=== PATIENT | female | born 1950 | race Caucasian/White ===

== ENCOUNTER 2016-12-12 10:12 | Inpatient (IN) | payer MEDICARE, MEDICAID ==
[~2016-12-12] VITALS: Ht 157.5 cm; Wt 60.3 kg
[~2016-12-12 10:12] MED LIST: ACET-1757 PO; DOCU100C8 PO; DULO60CA7 PO; METH500T7 PO; MULT-6 PO; OXYC5TAB3 PO; RANI-276 PO; [UNRECOGNIZED DRUG - OTHER] PO
[2016-12-12] MEDS ORDERED: ASPI-515 PO (10:35)
[2016-12-12] MEDS ORDERED: SODIUM CHLORIDE 0.9% 1,000 ML IV ONE (10:35)
[2016-12-12] MEDS ORDERED: PANTOPRAZOLE 80 MG in SODIUM CHLORIDE 0.9% 50 ML IVPB ONE (10:35)
[2016-12-12] MEDS ORDERED: PANTOPRAZOLE 80 MG in SODIUM CHLORIDE 0.9% 100 ML IV SCH ×2 (10:35→12:30)
[2016-12-12] MEDS ORDERED: PROCHLORPERAZINE 5 MG/ML, 2ML ONE (10:51)
[2016-12-12] MEDS ORDERED: PROCHLORPERAZINE 5 MG/ML, 2ML IM ONE (11:00)
[2016-12-12] MEDS ORDERED: SODIUM CHLORIDE FLUSH 10ML SYR IVF ONE (11:00)
[2016-12-12] MEDS ORDERED: ONDANSETRON 2MG/ML, 2ML IVPush ONE (11:00)
[2016-12-12] MEDS ORDERED: SODIUM CHLORIDE 0.9% 1,000ML IVBOLUS ONE ×2 (11:00→12:00)
[2016-12-12 11:22] LABS: BLOOD UREA NITROGEN 14 mg/dL (7-18)
[2016-12-12 11:24] LABS: ASPARTATE AMINO TRANSFERASE 28 U/L (15-37)
[2016-12-12] MEDS ORDERED: ONDANSETRON 2MG/ML, 2ML ONE (11:29)
[2016-12-12] MEDS ORDERED: LORazepam 2 MG/ML, 1ML ONE (12:19)
[2016-12-12] MEDS ORDERED: POTASSIUM CHLORIDE 20 MEQ, MAGNESIUM SULFATE 2 GM, THIAMINE 100 MG, MVI ADULT 10 ML, FO... IV SCH (12:21)
[2016-12-12] MEDS ORDERED: LORazepam 0.5MG TABLET PO PRN (12:30)
[2016-12-12] MEDS ORDERED: LORazepam 1MG TABLET PO PRN ×3 (12:30)
[2016-12-12] MEDS ORDERED: PROMETHAZINE 25 MG/ML, 1ML IM PRN (12:30)
[2016-12-12] MEDS ORDERED: LORazepam 2 MG/ML, 1ML IVPush ONE (12:30)
[2016-12-12] MEDS ORDERED: LABETALOL 5MG/ML, 20ML IVPush PRN (12:30)
[2016-12-12] MEDS ORDERED: LORazepam 2 MG/ML, 1ML IV PRN ×5 (12:30)
[2016-12-12 13:12] LABS: TOTAL IRON BINDING CAPACITY 401 mcg/dL (250-450)
[2016-12-12] MEDS ORDERED: POTASSIUM CHLORIDE 20 MEQ, MAGNESIUM SULFATE 2 GM, THIAMINE 100 MG, MVI ADULT 10 ML, FO... IV ONE (13:35)
[2016-12-12 14:45] VITALS: BP 150/80
[2016-12-12] MEDS: NS + 20MEQ KCL 1,000 ML IV SCH (17:04)
[2016-12-12] MEDS: CHLORDIAZEPOXIDE 25 MG CAPSULE PO SCH ×3 (17:05→21:00)
[2016-12-12] MEDS: ONDANSETRON 2MG/ML, 2ML IVPush PRN (18:30)
[2016-12-12 19:39] VITALS: BP 137/89
[2016-12-12] MEDS: PANTOPRAZOLE 80 MG in SODIUM CHLORIDE 0.9% 100 ML IV SCH (21:29)
[2016-12-13] MEDS: NS + 20MEQ KCL 1,000 ML IV SCH ×3 (00:37→23:16)
[2016-12-13] MEDS: LORazepam 1MG TABLET PO PRN ×2 (01:44→12:02)
[2016-12-13 02:00] VITALS: BP_SYST 146; BP_SYST 147; BP_DIAS 74; BP_DIAS 77
[2016-12-13 04:22] LABS: BLOOD UREA NITROGEN 6 mg/dL (7-18)
[2016-12-13 04:27] LABS: ASPARTATE AMINO TRANSFERASE 29 U/L (15-37)
[2016-12-13] MEDS: PANTOPRAZOLE 80 MG in SODIUM CHLORIDE 0.9% 100 ML IV SCH ×2 (05:55→17:30)
[2016-12-13 06:50] VITALS: BP 116/76
[2016-12-13] MEDS: CHLORDIAZEPOXIDE 25 MG CAPSULE PO SCH ×3 (08:29→21:36)
[2016-12-13] MEDS: MULTIVITAMINS/MINERALS TABLET PO SCH (08:29)
[2016-12-13] MEDS: ONDANSETRON 2MG/ML, 2ML IVPush PRN ×2 (09:29→20:23)
[2016-12-13] MEDS: POTASSIUM PHOSPHATE 44 MEQ in SODIUM CHLORIDE 0.9% 500 ML IV SCH ×2 (09:48→17:58)
[2016-12-13 12:50] VITALS: BP 154/86
[2016-12-13 19:54] VITALS: BP 122/85
[2016-12-14 00:51] VITALS: BP 131/86
[2016-12-14] MEDS: POTASSIUM PHOSPHATE 44 MEQ in SODIUM CHLORIDE 0.9% 500 ML IV SCH (01:26)
[2016-12-14] MEDS: PANTOPRAZOLE 80 MG in SODIUM CHLORIDE 0.9% 100 ML IV SCH (04:28)
[2016-12-14 05:29] LABS: BLOOD UREA NITROGEN 2 mg/dL (7-18)
[2016-12-14] MEDS: NS + 20MEQ KCL 1,000 ML IV SCH ×2 (05:35→17:34)
[2016-12-14] MEDS: ONDANSETRON 2MG/ML, 2ML IVPush PRN ×2 (05:38→10:38)
[2016-12-14 05:52] LABS: DIFF TOTAL CELLS COUNTED 100 CELL DIFF
[2016-12-14 06:13] LABS: VERIFY COUNTS? YES
[2016-12-14 07:52] VITALS: BP 118/81
[2016-12-14] MEDS: OMEPRAZOLE 20 MG CAPSULE.DR PO SCH ×2 (10:35→21:47)
[2016-12-14] MEDS: MULTIVITAMINS/MINERALS TABLET PO SCH (10:35)
[2016-12-14] MEDS: CHLORDIAZEPOXIDE 25 MG CAPSULE PO SCH ×3 (10:38→21:47)
[2016-12-14 13:57] VITALS: BP 109/74
[2016-12-14 19:24] VITALS: BP 126/91
[2016-12-15 01:10] VITALS: BP 125/87
[2016-12-15] MEDS: NS + 20MEQ KCL 1,000 ML IV SCH (06:31)
[2016-12-15 08:00] VITALS: BP 113/76
[2016-12-15] MEDS: OMEPRAZOLE 20 MG CAPSULE.DR PO SCH (08:41)
[2016-12-15] MEDS: CHLORDIAZEPOXIDE 25 MG CAPSULE PO SCH (08:41)
[2016-12-15] MEDS: MULTIVITAMINS/MINERALS TABLET PO SCH (08:41)
[2016-12-15] MEDS ORDERED: MULT-484 PO (10:53)
[2016-12-15] MEDS ORDERED: OMEP-110 PO (10:53)
[2016-12-15] MEDS ORDERED: THIA100T10 PO (10:53)
[2016-12-15 14:54] VITALS: BP 112/70
== END 2016-12-15 15:17 | disposition home or self-care (01) | DRG 895 ==
LOC: ED 10:50 → EDIP 12:32 → 4WST 14:30 → UNDODISIN 12-15 15:07 → DCLOUNGE 12-15 15:07
PROVIDERS: ADMIT Hospitalist; ATTEND Hospitalist
PROC: HZ34ZZZ Individual Counseling for Substance Abuse Treatment, Interpersonal (ICD-10-PCS; principal; 2016-12-12)
PROC: HZ2ZZZZ Detoxification Services for Substance Abuse Treatment (ICD-10-PCS; 2016-12-12)
DX: F10.239 Alcohol dependence with withdrawal, unspecified (principal); E87.2 Acidosis; E87.1 Hypo-osmolality and hyponatremia; K92.0 Hematemesis; F32.9 Major depressive disorder, single episode, unspecified; E86.0 Dehydration; D72.829 Elevated white blood cell count, unspecified; D53.9 Nutritional anemia, unspecified; Z96.642 Presence of left artificial hip joint; Z79.82 Long term (current) use of aspirin
CPT/HCPCS: 36415; 74022; 80048; 80053; 82607; 82728; 82746; 83540; 83550; 83605; 83690; 83735; 84100; 84439; 84443; 85025; 85045; 85610; 85730; 93005; 96365; 96372; 96375; J2405; J3411; J3475; J3480; J7042; C9113; J0780; J2060; J7030; J7040

== ENCOUNTER 2017-06-22 16:57 | Emergency (ER) | payer MEDICARE, MEDICAID ==
[~2017-06-22] VITALS: Ht 157.5 cm; Wt 54.7 kg
[~2017-06-22 16:57] MED LIST changes: +ASPI-515 PO; +DOCU100C33 PO; -DOCU100C8 PO; +MULT-484 PO; +OMEP-110 PO; +THIA100T10 PO
[2017-06-22] MEDS ORDERED: ONDANSETRON 2MG/ML, 2ML ONE (17:49)
[2017-06-22] MEDS ORDERED: GLUCAGON 1 MG ONE (17:49)
[2017-06-22] MEDS ORDERED: ONDANSETRON 2MG/ML, 2ML IVPush ONE (18:00)
[2017-06-22] MEDS ORDERED: GLUCAGON 1 MG IVPush ONE (18:00)
[2017-06-22] MEDS ORDERED: SODIUM CHLORIDE FLUSH 10ML SYR IVF ONE (18:00)
[2017-06-22] MEDS ORDERED: MIDAZOLAM 1 MG/ML, 5ML ONE (18:52)
[2017-06-22] MEDS ORDERED: FENTANYL PF 100 MCG/2ML ONE (18:52)
[2017-06-22] MEDS ORDERED: DIPHENHYDRAMINE 50 MG/ML, 1ML ONE (19:15)
[2017-06-22] MEDS ORDERED: DIPHENHYDRAMINE 50 MG/ML, 1ML IV ONE ×2 (20:00)
[2017-06-22] MEDS ORDERED: FENTANYL PF 100 MCG/2ML IVPush PRN (20:00)
[2017-06-22] MEDS ORDERED: MIDAZOLAM 1 MG/ML, 5ML IVPush PRN (20:00)
[2017-06-22 21:26] VITALS: BP 110/76
== END 2017-06-22 21:30 | disposition home or self-care (01) ==
LOC: ED 19:35
DX: T18.128A Food in esophagus causing other injury, initial encounter (principal); F41.9 Anxiety disorder, unspecified; F32.9 Major depressive disorder, single episode, unspecified; X58.XXXA Exposure to other specified factors, initial encounter; Y93.89 Activity, other specified; Y92.89 Other specified places as the place of occurrence of the external cause; Y99.8 Other external cause status
CPT/HCPCS: 43247; 88305; 93005; 96374; 96375; 99152; 99285; J1200; J1610; J2250; J2405; J3010

== ENCOUNTER 2018-05-20 18:36 | Emergency (ER) | payer MEDICARE, MEDICAID ==
[~2018-05-20] VITALS: Ht 160 cm; Wt 52.2 kg
[2018-05-20] MEDS ORDERED: SODIUM CHLORIDE 0.9% 1,000 ML IV ONE (18:57)
[2018-05-20] MEDS ORDERED: SODIUM CHLORIDE FLUSH 10ML SYR IVF ONE (19:00)
[2018-05-20 19:19] LABS: BASOPHILS # (AUTO) 0.02 x10^3/uL (0-0.1); BASOPHILS % (AUTO) 0 % (0-1); EOSINOPHILS # (AUTO) 0.05 x10^3/uL (0-0.4); EOSINOPHILS % (AUTO) 1 % (1-7); LYMPHOCYTES # (AUTO) 1.12 x10^3/uL (1-3.4); LYMPHOCYTES % (AUTO) 25 % (22-44); MD NO; MEAN CORPUSCULAR HEMOGLOBIN 34.6 pg (27.0-34.8); MEAN CORPUSCULAR HGB CONC 33.7 g/dL (32.4-35.8); MEAN CORPUSCULAR VOLUME 102.7 fL (80-100); MEAN PLATELET VOLUME 7.2 fL (7.4-10.4); MONOCYTES # (AUTO) 0.71 x10^3/uL (0.2-0.8); MONOCYTES % (AUTO) 16 % (2-9); NEUTROPHILS # (AUTO) 2.54 x10^3/uL (1.8-6.8); NEUTROPHILS % (AUTO) 57 % (42-75); PLATELET COUNT 259 x10^3/uL (130-400); RED BLOOD COUNT 3.45 x10^6/uL (3.82-5.3); RED CELL DISTRIBUTION WIDTH 16.6 % (9.6-15.2)
[2018-05-20 19:30] LABS: ALANINE AMINOTRANSFERASE 305 U/L (12-78); ALBUMIN 3.7 g/dL (3.4-5.0); ANION GAP 9 mmol/L (5-15); CALCIUM 9.1 mg/dL (8.5-10.1); CHLORIDE 110 mmol/L (98-107); CREATININE 0.44 mg/dL (0.55-1.02)
[2018-05-20 19:32] LABS: ALKALINE PHOSPHATASE 66 U/L (45-117); BILIRUBIN,TOTAL 0.6 mg/dL (0.2-1.0); TOTAL PROTEIN 7.9 g/dL (6.4-8.2)
[2018-05-20] MEDS ORDERED: OMNIPAQUE 350 MG/ML, 100ML BOTTLE ONE (20:01)
[2018-05-20 20:27] LABS: MICROSCOPIC AUTO
[2018-05-20] MEDS ORDERED: PINK LADY ENEMA 490 ML BOTTLE PR ONE (20:30)
[2018-05-20 20:33] LABS: CULTURE INDICATED? YES
[2018-05-20] MEDS ORDERED: ALBUTEROL 0.5%, 20ML ONE (21:08)
[2018-05-20 23:02] VITALS: BP 142/100
== END 2018-05-20 23:04 | disposition home or self-care (01) ==
LOC: ED 19:33
DX: K59.00 Constipation, unspecified (principal); F32.9 Major depressive disorder, single episode, unspecified
CPT/HCPCS: 36415; 74177; 80053; 81001; 83605; 83690; 85025; 87077; 87086; 87186; 99285; J7030; Q9967

== ENCOUNTER 2018-05-30 15:25 | Emergency (ER) | payer MEDICARE, MEDICAID ==
[~2018-05-30] VITALS: Ht 157.5 cm; Wt 51.0 kg
[2018-05-30 16:35] LABS: BASOPHILS # (AUTO) 0.07 x10^3/uL (0-0.1); BASOPHILS % (AUTO) 1 % (0-1); EOSINOPHILS # (AUTO) 0.02 x10^3/uL (0-0.4); EOSINOPHILS % (AUTO) 0 % (1-7); LYMPHOCYTES # (AUTO) 3.22 x10^3/uL (1-3.4); LYMPHOCYTES % (AUTO) 42 % (22-44); MD NO; MEAN CORPUSCULAR HEMOGLOBIN 34.4 pg (27.0-34.8); MEAN CORPUSCULAR HGB CONC 33.7 g/dL (32.4-35.8); MEAN CORPUSCULAR VOLUME 102.1 fL (80-100); MONOCYTES # (AUTO) 0.52 x10^3/uL (0.2-0.8); MONOCYTES % (AUTO) 7 % (2-9); NEUTROPHILS # (AUTO) 3.87 x10^3/uL (1.8-6.8); NEUTROPHILS % (AUTO) 50 % (42-75); PLATELET COUNT 501 x10^3/uL (130-400); RED BLOOD COUNT 3.31 x10^6/uL (3.82-5.3); RED CELL DISTRIBUTION WIDTH 16.4 % (9.6-15.2)
[2018-05-30 16:46] LABS: ALBUMIN 3.4 g/dL (3.4-5.0); ANION GAP 10 mmol/L (5-15); CALCIUM 8.1 mg/dL (8.5-10.1); CHLORIDE 111 mmol/L (98-107)
[2018-05-30 16:47] LABS: CREATININE 0.46 mg/dL (0.55-1.02)
[2018-05-30 16:48] LABS: ACETAMINOPHEN < 2 mcg/mL (10-30); SALICYLATE LEVEL < 1.7 mg/dL (2.8-20.0)
[2018-05-30] MEDS ORDERED: ZIPRASIDONE 20 MG INJ IM ONE (17:00)
[2018-05-31 00:17] VITALS: BP 106/54
== END 2018-05-31 00:22 | disposition home or self-care (01) ==
LOC: ED 17:18
DX: F32.9 Major depressive disorder, single episode, unspecified (principal); R45.851 Suicidal ideations; F10.220 Alcohol dependence with intoxication, uncomplicated
CPT/HCPCS: 36415; 80048; 80307; 80329; 82040; 85025; 99284; J3486; G0480

== ENCOUNTER 2018-09-14 12:25 | Inpatient (IN) | payer MEDICARE, MEDICAID ==
[~2018-09-14] VITALS: Ht 157.5 cm; Wt 52.8 kg
[~2018-09-14 12:25] MED LIST changes: +MELO15TA24 PO; +MIRT15TA4 PO; +POTASSIUM; -RANI-276 PO; +RANI-448 PO; +TRAZ-96 PO
[2018-09-14] MEDS ORDERED: SODIUM CHLORIDE FLUSH 10ML SYR IVF ONE (13:30)
[2018-09-14] MEDS ORDERED: MORPHINE SULFATE 4 MG/ML, 1ML IVPush PRN (13:30)
--- NOTE | 2018-09-14 13:32 | NUR ---
REQUESTED RECORDS FROM [facility].
[2018-09-14] MEDS ORDERED: ONDANSETRON 2MG/ML, 2ML ONE (14:03)
[2018-09-14] MEDS ORDERED: MORPHINE SULFATE 4 MG/ML, 1ML ONE (14:03)
[2018-09-14 14:06] LABS: HCT (SEDRATE) 31.9 % (34.6-47.8)
--- NOTE | 2018-09-14 14:20 | NUR ---
STRAIGHT CATH PER PROTOCOL. URINE WALKED TO LAB.
[2018-09-14 14:21] LABS: ALBUMIN 3.2 g/dL (3.4-5.0); ANION GAP 10 mmol/L (5-15); CALCIUM 8.4 mg/dL (8.5-10.1); CHLORIDE 99 mmol/L (98-107)
[2018-09-14 14:24] LABS: ALANINE AMINOTRANSFERASE 75 U/L (12-78); ALKALINE PHOSPHATASE 69 U/L (45-117); BILIRUBIN,TOTAL 1.2 mg/dL (0.2-1.0); CREATININE 0.33 mg/dL (0.55-1.02)
[2018-09-14] MEDS ORDERED: ONDANSETRON 2MG/ML, 2ML IVPush ONE (14:30)
[2018-09-14 14:37] LABS: CULTURE INDICATED? YES; MICROSCOPIC INDICATED
[2018-09-14] MEDS ORDERED: MAGNESIUM SULFATE PMX 2GM/50ML 50 ML ONE (15:09)
[2018-09-14] MEDS ORDERED: POTASSIUM CHLORIDE 20 MEQ TAB.ER.PRT ONE (15:09)
[2018-09-14 15:25] LABS: BASOPHILS # (AUTO) 0.02 x10^3/uL (0-0.1); BASOPHILS % (AUTO) 0 % (0-1); EOSINOPHILS # (AUTO) 0.01 x10^3/uL (0-0.4); EOSINOPHILS % (AUTO) 0 % (1-7); LYMPHOCYTES # (AUTO) 0.21 x10^3/uL (1-3.4); LYMPHOCYTES % (AUTO) 4 % (22-44); MD SCAN; MEAN CORPUSCULAR HEMOGLOBIN 32.5 pg (27.0-34.8); MEAN CORPUSCULAR HGB CONC 32.9 g/dL (32.4-35.8); MEAN CORPUSCULAR VOLUME 98.7 fL (80-100); MONOCYTES # (AUTO) 0.21 x10^3/uL (0.2-0.8); MONOCYTES % (AUTO) 4 % (2-9); NEUTROPHILS # (AUTO) 4.47 x10^3/uL (1.8-6.8); NEUTROPHILS % (AUTO) 91 % (42-75); PLATELET COUNT 94 x10^3/uL (130-400); RED BLOOD COUNT 3.23 x10^6/uL (3.82-5.3); RED CELL DISTRIBUTION WIDTH 17.3 % (9.6-15.2)
[2018-09-14] MEDS ORDERED: POTASSIUM CHLORIDE 20 MEQ TAB.ER.PRT PO ONE (15:30)
[2018-09-14] MEDS ORDERED: POTASSIUM CHLORIDE 40 MEQ in D5%-0.9% NACL 1,000 ML IV SCH (15:30)
[2018-09-14] MEDS ORDERED: MAGNESIUM SULFATE PMX 2GM/50ML 50 ML IV ONE (15:30)
[2018-09-14] MEDS ORDERED: BISACODYL 10 MG SUPP PR PRN (17:00)
[2018-09-14] MEDS ORDERED: ENALAPRILAT 1.25 MG/ML, 2ML IVPush PRN (17:00)
[2018-09-14] MEDS ORDERED: LABETALOL 5MG/ML, 20ML IVPush PRN (17:00)
[2018-09-14] MEDS ORDERED: GABAPENTIN 300 MG CAPSULE PO PRN (17:00)
[2018-09-14] MEDS ORDERED: ACETAMINOPHEN 325 MG TABLET PO PRN (17:00)
[2018-09-14] MEDS ORDERED: POLYETHYLENE GLYCOL 17 GM PACKET PO PRN (17:00)
[2018-09-14] MEDS ORDERED: LACTULOSE 10 GM/15 ML UDC PO PRN (17:00)
--- NOTE | 2018-09-14 18:40 | NUR ---
SLEEPING COMFORTABLY. WAITING ON ADMIT BED.
--- NOTE | 2018-09-14 19:30 | NUR ---
ASSUME CARE OF PT
[2018-09-14 20:24] VITALS: BP 109/77
[2018-09-14] MEDS: HYDROcodone/APAP 5/325 TABLET PO PRN (21:43)
[2018-09-14] MEDS: HEPARIN 5,000 UNITS/ML, 1ML SQ SCH (21:43)
[2018-09-14] MEDS: D5%-0.45NACL+KCL 20MEQ 1,000 ML IV SCH (21:54)
[2018-09-14 23:02] LABS: ANION GAP 8 mmol/L (5-15); CALCIUM 7.8 mg/dL (8.5-10.1); CHLORIDE 101 mmol/L (98-107)
[2018-09-14 23:03] LABS: CREATININE 0.46 mg/dL (0.55-1.02)
[2018-09-15 01:46] VITALS: BP 103/72
[2018-09-15] MEDS: HYDROcodone/APAP 5/325 TABLET PO PRN ×4 (04:01→23:58)
[2018-09-15] MEDS: HEPARIN 5,000 UNITS/ML, 1ML SQ SCH ×3 (05:34→20:25)
[2018-09-15 05:49] LABS: MEAN CORPUSCULAR VOLUME 99.9 fL (80-100); RED BLOOD COUNT 3.02 x10^6/uL (3.82-5.3)
[2018-09-15 06:02] LABS: ALANINE AMINOTRANSFERASE 63 U/L (12-78); ALBUMIN 2.6 g/dL (3.4-5.0); ANION GAP 8 mmol/L (5-15); CALCIUM 7.7 mg/dL (8.5-10.1); CHLORIDE 104 mmol/L (98-107)
[2018-09-15 06:05] LABS: ALKALINE PHOSPHATASE 62 U/L (45-117); BILIRUBIN,TOTAL 0.7 mg/dL (0.2-1.0); CREATININE 0.47 mg/dL (0.55-1.02); TOTAL PROTEIN 5.9 g/dL (6.4-8.2)
[2018-09-15 07:29] LABS: BASOPHILS # (AUTO) 0.01 x10^3/uL (0-0.1); BASOPHILS % (AUTO) 0 % (0-1); EOSINOPHILS # (AUTO) 0.08 x10^3/uL (0-0.4); EOSINOPHILS % (AUTO) 3 % (1-7); LYMPHOCYTES # (AUTO) 0.61 x10^3/uL (1-3.4); LYMPHOCYTES % (AUTO) 19 % (22-44); MD SCAN; MEAN PLATELET VOLUME 7.6 fL (7.4-10.4); MONOCYTES # (AUTO) 0.37 x10^3/uL (0.2-0.8); MONOCYTES % (AUTO) 12 % (2-9); NEUTROPHILS # (AUTO) 2.13 x10^3/uL (1.8-6.8); NEUTROPHILS % (AUTO) 67 % (42-75); PLATELET COUNT 87 x10^3/uL (130-400)
[2018-09-15 07:35] VITALS: BP 103/72
[2018-09-15] MEDS: D5%-0.45NACL+KCL 20MEQ 1,000 ML IV SCH ×2 (08:25→18:25)
[2018-09-15] MEDS: SENNA/DOCUSATE TABLET PO SCH (08:25)
[2018-09-15] MEDS: MULTIVITAMIN 1 TABLET PO SCH (08:25)
[2018-09-15] MEDS: THIAMINE 100MG TABLET PO SCH (08:25)
[2018-09-15] MEDS: CALCITONIN NASAL 200 UNITS/0.09ML, 3.7ML NAS SCH (08:38)
[2018-09-15 12:17] VITALS: BP 122/87
[2018-09-15 19:10] VITALS: BP 131/77
[2018-09-16 01:13] VITALS: BP 128/72
[2018-09-16] MEDS: D5%-0.45NACL+KCL 20MEQ 1,000 ML IV SCH ×3 (04:12→21:10)
[2018-09-16] MEDS: HEPARIN 5,000 UNITS/ML, 1ML SQ SCH ×3 (05:13→21:10)
[2018-09-16 05:18] LABS: CLOSTRIDIUM DIFFICILE ANTIGEN POSITIVE; CLOSTRIDIUM DIFFICILE TOXIN NEGATIVE (Negative)
[2018-09-16 08:01] VITALS: BP 132/78
[2018-09-16] MEDS: SENNA/DOCUSATE TABLET PO SCH (09:00)
[2018-09-16] MEDS: MULTIVITAMIN 1 TABLET PO SCH (10:06)
[2018-09-16] MEDS: HYDROcodone/APAP 5/325 TABLET PO PRN ×2 (10:06→21:10)
[2018-09-16] MEDS: THIAMINE 100MG TABLET PO SCH (10:06)
[2018-09-16] MEDS: CALCITONIN NASAL 200 UNITS/0.09ML, 3.7ML NAS SCH (11:38)
[2018-09-16 13:16] VITALS: BP 115/80
[2018-09-16 18:35] VITALS: BP 123/84
[2018-09-17 01:45] VITALS: BP 146/94
[2018-09-17] MEDS: HEPARIN 5,000 UNITS/ML, 1ML SQ SCH ×3 (05:26→22:05)
[2018-09-17 06:47] LABS: ANION GAP 7 mmol/L (5-15); CALCIUM 8.1 mg/dL (8.5-10.1); CHLORIDE 105 mmol/L (98-107); CREATININE 0.33 mg/dL (0.55-1.02)
[2018-09-17] MEDS ORDERED: POTASSIUM CHLORIDE 20 MEQ TAB.ER.PRT PO ONE (07:30)
[2018-09-17] MEDS: SENNA/DOCUSATE TABLET PO SCH (07:56)
[2018-09-17 08:40] VITALS: BP 129/86
[2018-09-17] MEDS: CALCITONIN NASAL 200 UNITS/0.09ML, 3.7ML NAS SCH (08:53)
[2018-09-17] MEDS: THIAMINE 100MG TABLET PO SCH (08:54)
[2018-09-17] MEDS: MULTIVITAMIN 1 TABLET PO SCH (08:54)
[2018-09-17] MEDS: D5%-0.45NACL+KCL 20MEQ 1,000 ML IV SCH (09:52)
[2018-09-17] MEDS: CHOLECALCIFEROL 400 UNITS TABLET PO SCH ×2 (11:16→20:13)
[2018-09-17] MEDS: CALCIUM CARBONATE 500 MG TABLET PO SCH ×2 (11:16→20:13)
[2018-09-17] MEDS ORDERED: ONDANSETRON ODT 4 MG PO PRN (13:00)
[2018-09-17 13:17] VITALS: BP 136/79
[2018-09-17] MEDS ORDERED: ALENDRONATE 70 MG TABLET PO SCH (13:30)
[2018-09-17 19:00] VITALS: BP 133/89
[2018-09-17] MEDS: HYDROcodone/APAP 5/325 TABLET PO PRN (20:13)
[2018-09-18 01:00] VITALS: BP 138/89
[2018-09-18] MEDS: HYDROcodone/APAP 5/325 TABLET PO PRN ×2 (01:11→10:11)
[2018-09-18] MEDS: HEPARIN 5,000 UNITS/ML, 1ML SQ SCH ×3 (05:47→20:50)
[2018-09-18 06:30] VITALS: BP 114/78
[2018-09-18] MEDS: SENNA/DOCUSATE TABLET PO SCH (07:32)
[2018-09-18] MEDS: CHOLECALCIFEROL 400 UNITS TABLET PO SCH ×2 (10:05→20:50)
[2018-09-18] MEDS: THIAMINE 100MG TABLET PO SCH (10:05)
[2018-09-18] MEDS: CALCIUM CARBONATE 500 MG TABLET PO SCH ×2 (10:05→20:50)
[2018-09-18] MEDS: MULTIVITAMIN 1 TABLET PO SCH (10:05)
[2018-09-18] MEDS: CALCITONIN NASAL 200 UNITS/0.09ML, 3.7ML NAS SCH (10:11)
[2018-09-18 14:58] VITALS: BP 120/78
[2018-09-18 18:40] VITALS: BP 123/83
[2018-09-18] MEDS: BACLOFEN 10 MG TABLET PO PRN (20:57)
[2018-09-19 03:15] VITALS: BP 158/85
[2018-09-19] MEDS: HEPARIN 5,000 UNITS/ML, 1ML SQ SCH ×3 (05:44→21:13)
[2018-09-19 07:28] VITALS: BP 122/80
[2018-09-19] MEDS: SENNA/DOCUSATE TABLET PO SCH (09:00)
[2018-09-19] MEDS: CHOLECALCIFEROL 400 UNITS TABLET PO SCH ×2 (09:18→21:13)
[2018-09-19] MEDS: CALCITONIN NASAL 200 UNITS/0.09ML, 3.7ML NAS SCH (09:18)
[2018-09-19] MEDS: THIAMINE 100MG TABLET PO SCH (09:18)
[2018-09-19] MEDS: MULTIVITAMIN 1 TABLET PO SCH (09:18)
[2018-09-19] MEDS: CALCIUM CARBONATE 500 MG TABLET PO SCH ×2 (09:18→21:13)
[2018-09-19] MEDS: HYDROcodone/APAP 5/325 TABLET PO PRN ×2 (11:36→23:28)
[2018-09-19 13:34] VITALS: BP 107/71
[2018-09-19 19:11] VITALS: BP 133/85
[2018-09-19] MEDS: BACLOFEN 10 MG TABLET PO PRN (22:38)
[2018-09-20 01:03] VITALS: BP 145/85
[2018-09-20] MEDS: HYDROcodone/APAP 5/325 TABLET PO PRN (03:31)
[2018-09-20] MEDS: HEPARIN 5,000 UNITS/ML, 1ML SQ SCH ×2 (06:27→14:30)
[2018-09-20 07:24] VITALS: BP 121/78
[2018-09-20] MEDS: CALCIUM CARBONATE 500 MG TABLET PO SCH (08:37)
[2018-09-20] MEDS: CHOLECALCIFEROL 400 UNITS TABLET PO SCH (08:37)
[2018-09-20] MEDS: MULTIVITAMIN 1 TABLET PO SCH (08:37)
[2018-09-20] MEDS: SENNA/DOCUSATE TABLET PO SCH (08:37)
[2018-09-20] MEDS: THIAMINE 100MG TABLET PO SCH (08:37)
[2018-09-20] MEDS: CALCITONIN NASAL 200 UNITS/0.09ML, 3.7ML NAS SCH (08:37)
[2018-09-20] MEDS: BACLOFEN 10 MG TABLET PO PRN (08:37)
[2018-09-20] MEDS ORDERED: ALEN70TA6 PO (09:43)
[2018-09-20] MEDS ORDERED: CALC-666 PO (09:43)
[2018-09-20] MEDS ORDERED: CHOL400T2 PO (09:43)
[2018-09-20 12:25] VITALS: BP 125/79
[2018-09-20] MEDS ORDERED: TRAZ-96 PO (13:32)
[2018-09-20] MEDS ORDERED: HYDR-3240 PO (13:32)
[2018-09-24] MEDS ORDERED: ALENDRONATE 70 MG TABLET PO SCH (06:30)
== END 2018-09-20 15:23 | DRG 542 ==
LOC: ED 14:09 → EDIP 15:21 → UNDOADMIN 15:45 → 4EST 20:09
PROVIDERS: ADMIT Family Medicine; ATTEND Family Medicine
PROC: 0T9B70Z Drainage of Bladder with Drainage Device, Via Natural or Artificial Opening (ICD-10-PCS; principal; 2018-09-14)
DX: M80.00XA Age-related osteoporosis with current pathological fracture, unspecified site, initial encounter for fracture (principal); E43 Unspecified severe protein-calorie malnutrition; E87.1 Hypo-osmolality and hyponatremia; Z80.3 Family history of malignant neoplasm of breast; Z80.1 Family history of malignant neoplasm of trachea, bronchus and lung; I11.0 Hypertensive heart disease with heart failure; G89.29 Other chronic pain; F41.1 Generalized anxiety disorder; E83.51 Hypocalcemia; E83.42 Hypomagnesemia; E86.0 Dehydration; E87.6 Hypokalemia; F10.21 Alcohol dependence, in remission; Z59.0 Homelessness; Z87.19 Personal history of other diseases of the digestive system; Z96.642 Presence of left artificial hip joint
CPT/HCPCS: 36415; 71045; 72128; 72131; 80048; 80053; 80307; 81001; 83605; 83735; 84100; 84443; 85025; 85651; 87040; 87086; 87324; 93005; 96374; 96375; 99285; G0378; J1644; J2405; J3480; J7042; Q0162; J3475

== ENCOUNTER 2018-11-07 17:02 | Inpatient (IN) | payer MEDICARE, MEDICAID ==
[~2018-11-07] VITALS: Ht 157.5 cm; Wt 40.6 kg
[~2018-11-07 17:02] MED LIST changes: +ALEN70TA6 PO; +CALC-666 PO; +CHOL400T2 PO; +HYDR-3240 PO
--- NOTE | 2018-11-07 17:24 | NUR ---
[facility]
--- NOTE | 2018-11-07 17:27 | NUR ---
Pt in triage room 2 getting EKG
[2018-11-07 17:29] LABS: BASOPHILS # (AUTO) 0.03 x10^3/uL (0-0.1); BASOPHILS % (AUTO) 0 % (0-1); EOSINOPHILS % (AUTO) 0 % (1-7); LYMPHOCYTES # (AUTO) 1.21 x10^3/uL (1-3.4); LYMPHOCYTES % (AUTO) 15 % (22-44); MD NO; MEAN CORPUSCULAR HEMOGLOBIN 32.5 pg (27.0-34.8); MEAN CORPUSCULAR HGB CONC 32.2 g/dL (32.4-35.8); MEAN CORPUSCULAR VOLUME 100.8 fL (80-100); MEAN PLATELET VOLUME 7.6 fL (7.4-10.4); MONOCYTES # (AUTO) 0.41 x10^3/uL (0.2-0.8); MONOCYTES % (AUTO) 5 % (2-9); NEUTROPHILS # (AUTO) 6.55 x10^3/uL (1.8-6.8); NEUTROPHILS % (AUTO) 80 % (42-75); PLATELET COUNT 238 x10^3/uL (130-400); RED BLOOD COUNT 4.38 x10^6/uL (3.82-5.3); RED CELL DISTRIBUTION WIDTH 16.2 % (9.6-15.2)
[2018-11-07 17:43] LABS: ALANINE AMINOTRANSFERASE 78 U/L (12-78); ALBUMIN 4.3 g/dL (3.4-5.0); ANION GAP 26 mmol/L (5-15); CALCIUM 9.1 mg/dL (8.5-10.1); CHLORIDE 100 mmol/L (98-107); CREATININE 0.65 mg/dL (0.55-1.02)
[2018-11-07 17:46] LABS: ALKALINE PHOSPHATASE 83 U/L (45-117); BILIRUBIN,TOTAL 0.4 mg/dL (0.2-1.0); TOTAL PROTEIN 8.9 g/dL (6.4-8.2)
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
[2018-11-07] MEDS ORDERED: ONDANSETRON 2MG/ML, 2ML IVPush ONE (18:30)
[2018-11-07] MEDS ORDERED: SODIUM CHLORIDE 0.9% 1,000ML IVBOLUS ONE (18:30)
[2018-11-07] MEDS ORDERED: ONDANSETRON 2MG/ML, 2ML ONE (18:32)
[2018-11-07] MEDS ORDERED: ONDANSETRON 2MG/ML, 2ML IVPush PRN (19:00)
[2018-11-07] MEDS ORDERED: D5%-LACTATED RINGERS 1,000 ML IV ONE (19:00)
--- NOTE | 2018-11-07 19:03 | NUR ---
Provided medication and fluids per EMAR. Pt placed on absorbant pad due to, "when I dry heave I wet myself." Pt has call light within reach, connected to NIBP, continous pulse ox, and secured entrance monitor. SAMANTHAN. Pt states, "my back hurts, my head hurts." All safety measures in place. Call light within reach. Pt has emesis bags within reach.
--- NOTE | 2018-11-07 19:17 | NUR ---
Provided bedside report to PERRY Ocasio. All questions answered. PERRY Ocasio to assume care of pt.
--- NOTE | 2018-11-07 19:30 | NUR ---
REPORT GIVEN TO PERRY CHAMPAGNE
[2018-11-07] MEDS ORDERED: ONDANSETRON ODT 4 MG PO PRN (20:30)
[2018-11-07] MEDS ORDERED: LORazepam 2 MG/ML, 1ML IV PRN ×3 (20:30)
[2018-11-07] MEDS ORDERED: LORazepam 0.5MG TABLET PO PRN (20:30)
[2018-11-07] MEDS ORDERED: LORazepam 1MG TABLET PO PRN ×3 (20:30)
[2018-11-07 20:40] VITALS: BP 150/86
[2018-11-07] MEDS: HEPARIN 5,000 UNITS/ML, 1ML SQ SCH (21:05)
[2018-11-07] MEDS: POTASSIUM CHLORIDE 20 MEQ, MAGNESIUM SULFATE 2 GM, THIAMINE 200 MG, MVI ADULT 10 ML, FO... IV SCH (22:05)
[2018-11-07 22:28] LABS: ANION GAP 22 mmol/L (5-15); CALCIUM 8.3 mg/dL (8.5-10.1); CHLORIDE 104 mmol/L (98-107); CREATININE 0.55 mg/dL (0.55-1.02)
[2018-11-07] MEDS: ONDANSETRON 2MG/ML, 2ML IVPush PRN (23:09)
[2018-11-07 23:16] LABS: MICROSCOPIC AUTO
[2018-11-07 23:22] LABS: CULTURE INDICATED? NO
[2018-11-07 23:25] LABS: AMPHETAMINE SCREEN, URINE Negative (Negative); BARBITURATE SCREEN, URINE Negative (Negative); BENZODIAZEPINE SCREEN, URINE Negative (Negative); CANNABINOID SCREEN, URINE Negative (Negative); COCAINE SCREEN, URINE Negative (Negative); METHADONE SCREEN, URINE Negative (Negative); OPIATE SCREEN, URINE Negative (Negative)
[2018-11-08] MEDS: HYDROcodone/APAP 5/325 TABLET PO PRN ×2 (00:25→21:00)
[2018-11-08] MEDS ORDERED: SODIUM CHLORIDE 0.9% 1,000ML IVBOLUS ONE (00:30)
[2018-11-08] MEDS ORDERED: HYDROcodone/APAP 5/325 TABLET PO ONE (00:30)
[2018-11-08] MEDS: LORazepam 2 MG/ML, 1ML IV PRN ×2 (01:47→05:34)
[2018-11-08 02:03] VITALS: BP 148/82
[2018-11-08 05:12] LABS: ANION GAP 15 mmol/L (5-15); CALCIUM 7.5 mg/dL (8.5-10.1); CHLORIDE 106 mmol/L (98-107); CREATININE 0.58 mg/dL (0.55-1.02)
[2018-11-08 05:16] LABS: MEAN CORPUSCULAR HEMOGLOBIN 34.1 pg (27.0-34.8); MEAN CORPUSCULAR HGB CONC 33.8 g/dL (32.4-35.8); MEAN CORPUSCULAR VOLUME 100.9 fL (80-100); MEAN PLATELET VOLUME 7.3 fL (7.4-10.4); PLATELET COUNT 236 x10^3/uL (130-400); RED BLOOD COUNT 3.75 x10^6/uL (3.82-5.3); RED CELL DISTRIBUTION WIDTH 15.7 % (9.6-15.2)
[2018-11-08] MEDS: HEPARIN 5,000 UNITS/ML, 1ML SQ SCH ×3 (05:34→20:59)
[2018-11-08 05:41] LABS: BASOPHILS # (AUTO) 0.05 x10^3/uL (0-0.1); BASOPHILS % (AUTO) 0 % (0-1); EOSINOPHILS % (AUTO) 0 % (1-7); LYMPHOCYTES # (AUTO) 0.55 x10^3/uL (1-3.4); LYMPHOCYTES % (AUTO) 4 % (22-44); MD SCAN; MONOCYTES # (AUTO) 0.57 x10^3/uL (0.2-0.8); MONOCYTES % (AUTO) 4 % (2-9); NEUTROPHILS % (AUTO) 91 % (42-75)
[2018-11-08] MEDS ORDERED: ALENDRONATE 70 MG TABLET PO SCH (06:30)
[2018-11-08 07:45] VITALS: BP 166/95
[2018-11-08] MEDS: OMEPRAZOLE 20 MG CAPSULE.DR PO SCH ×2 (08:04→20:59)
[2018-11-08] MEDS: THIAMINE 100MG TABLET PO SCH (08:04)
[2018-11-08] MEDS: ONDANSETRON 2MG/ML, 2ML IVPush PRN (11:34)
[2018-11-08 12:13] LABS: ANION GAP 10 mmol/L (5-15); CALCIUM 8.3 mg/dL (8.5-10.1); CHLORIDE 102 mmol/L (98-107)
[2018-11-08 12:16] LABS: CREATININE 0.48 mg/dL (0.55-1.02)
[2018-11-08 13:16] VITALS: BP 154/94
[2018-11-08] MEDS: SODIUM CHLORIDE 0.9% 1,000 ML IV SCH (14:26)
[2018-11-08 20:56] VITALS: BP 141/97
[2018-11-08] MEDS: POTASSIUM CHLORIDE 20 MEQ, MAGNESIUM SULFATE 2 GM, THIAMINE 200 MG, MVI ADULT 10 ML, FO... IV SCH (22:32)
[2018-11-09 03:01] VITALS: BP 136/90
[2018-11-09] MEDS: HEPARIN 5,000 UNITS/ML, 1ML SQ SCH ×3 (05:34→21:44)
[2018-11-09 06:30] LABS: ALBUMIN 3.3 g/dL (3.4-5.0); ANION GAP 7 mmol/L (5-15); CALCIUM 7.9 mg/dL (8.5-10.1); CHLORIDE 106 mmol/L (98-107)
[2018-11-09 06:34] LABS: ALANINE AMINOTRANSFERASE 41 U/L (12-78); ALKALINE PHOSPHATASE 68 U/L (45-117); BILIRUBIN,TOTAL 1.4 mg/dL (0.2-1.0); CREATININE 0.41 mg/dL (0.55-1.02)
[2018-11-09 06:35] LABS: MEAN CORPUSCULAR HEMOGLOBIN 33.7 pg (27.0-34.8); MEAN CORPUSCULAR HGB CONC 34.1 g/dL (32.4-35.8); MEAN CORPUSCULAR VOLUME 98.9 fL (80-100); MEAN PLATELET VOLUME 7.9 fL (7.4-10.4); PLATELET COUNT 202 x10^3/uL (130-400); RED CELL DISTRIBUTION WIDTH 15.4 % (9.6-15.2)
[2018-11-09 07:06] LABS: MD YES
[2018-11-09 07:10] LABS: <PLATELET ESTIMATE> ADEQUATE; <PLT MORPHOLOGY> NORMAL PLT MORPH; <RBC MORPHOLOGY> NORMAL; LYMPH#(MANUAL) 1.13 x10^3/uL (1-3.4); LYMPHS% (MANUAL) 21 % (22-44); MONOS#(MANUAL) 0.22 x10^3/uL (0.3-2.7); MONOS% (MANUAL) 4 % (2-9); SEG#(MANUAL) 4.05 x10^3/uL (1.8-6.8); SEGS% (MANUAL) 75 % (42-75)
[2018-11-09 08:03] VITALS: BP 134/94
[2018-11-09] MEDS: THIAMINE 100MG TABLET PO SCH (08:32)
[2018-11-09] MEDS: OMEPRAZOLE 20 MG CAPSULE.DR PO SCH ×2 (08:32→20:13)
[2018-11-09] MEDS: SODIUM CHLORIDE 0.9% 1,000 ML IV SCH (08:33)
[2018-11-09 13:27] VITALS: BP 138/91
[2018-11-09] MEDS: POTASSIUM CHLORIDE 20 MEQ, MAGNESIUM SULFATE 2 GM, THIAMINE 200 MG, MVI ADULT 10 ML, FO... IV SCH (20:13)
[2018-11-09 20:39] VITALS: BP 141/85
[2018-11-09 21:25] LABS: CULTURE INDICATED? YES; MICROSCOPIC INDICATED
[2018-11-10] MEDS: POTASSIUM CHLORIDE 20 MEQ, MAGNESIUM SULFATE 2 GM, THIAMINE 200 MG, MVI ADULT 10 ML, FO... IV SCH (00:16)
[2018-11-10 01:54] VITALS: BP 136/82
[2018-11-10] MEDS: HEPARIN 5,000 UNITS/ML, 1ML SQ SCH ×3 (05:22→21:46)
[2018-11-10 06:06] LABS: BASOPHILS # (AUTO) 0.02 x10^3/uL (0-0.1); BASOPHILS % (AUTO) 0 % (0-1); EOSINOPHILS # (AUTO) 0.08 x10^3/uL (0-0.4); EOSINOPHILS % (AUTO) 2 % (1-7); LYMPHOCYTES # (AUTO) 1.39 x10^3/uL (1-3.4); LYMPHOCYTES % (AUTO) 26 % (22-44); MD NO; MEAN CORPUSCULAR HEMOGLOBIN 33.7 pg (27.0-34.8); MEAN CORPUSCULAR HGB CONC 33.9 g/dL (32.4-35.8); MEAN CORPUSCULAR VOLUME 99.4 fL (80-100); MONOCYTES # (AUTO) 0.32 x10^3/uL (0.2-0.8); MONOCYTES % (AUTO) 6 % (2-9); NEUTROPHILS % (AUTO) 66 % (42-75); PLATELET COUNT 183 x10^3/uL (130-400); RED BLOOD COUNT 3.97 x10^6/uL (3.82-5.3); RED CELL DISTRIBUTION WIDTH 15.3 % (9.6-15.2)
[2018-11-10 06:19] LABS: CALCIUM 8.2 mg/dL (8.5-10.1); CHLORIDE 106 mmol/L (98-107)
[2018-11-10 06:23] LABS: ALANINE AMINOTRANSFERASE 39 U/L (12-78); ALBUMIN 3.2 g/dL (3.4-5.0); ALKALINE PHOSPHATASE 65 U/L (45-117); ANION GAP 9 mmol/L (5-15); BILIRUBIN,TOTAL 0.7 mg/dL (0.2-1.0); CREATININE 0.44 mg/dL (0.55-1.02)
[2018-11-10] MEDS: OMEPRAZOLE 20 MG CAPSULE.DR PO SCH ×2 (08:31→20:08)
[2018-11-10] MEDS: THIAMINE 100MG TABLET PO SCH (08:31)
[2018-11-10] MEDS: CEFDINIR 300 MG CAPSULE PO SCH ×2 (08:31→20:08)
[2018-11-10 08:35] VITALS: BP 143/90
[2018-11-10 14:17] VITALS: BP 139/89
[2018-11-10 14:21] VITALS: BP 143/83
[2018-11-10 19:17] VITALS: BP 136/95
[2018-11-11] MEDS: HYDROcodone/APAP 5/325 TABLET PO PRN ×2 (00:11→05:26)
[2018-11-11 00:13] VITALS: BP 146/94
[2018-11-11] MEDS: HEPARIN 5,000 UNITS/ML, 1ML SQ SCH (05:26)
[2018-11-11] MEDS ORDERED: CEFD300C37 PO (07:06)
[2018-11-11 08:00] VITALS: BP 135/95
[2018-11-11] MEDS: OMEPRAZOLE 20 MG CAPSULE.DR PO SCH (08:01)
[2018-11-11] MEDS: CEFDINIR 300 MG CAPSULE PO SCH (08:01)
[2018-11-11] MEDS: THIAMINE 100MG TABLET PO SCH (08:01)
== END 2018-11-11 14:34 | disposition home or self-care (01) | DRG 689 ==
LOC: ED 18:33 → EDIP 18:46 → 4EST 20:30
PROVIDERS: ADMIT Family Medicine; ATTEND Family Medicine
DX: N39.0 Urinary tract infection, site not specified (principal); E43 Unspecified severe protein-calorie malnutrition; F10.239 Alcohol dependence with withdrawal, unspecified; E87.2 Acidosis; E86.0 Dehydration; F10.220 Alcohol dependence with intoxication, uncomplicated; F41.1 Generalized anxiety disorder; M81.0 Age-related osteoporosis without current pathological fracture; I10 Essential (primary) hypertension; G89.29 Other chronic pain; R32 Unspecified urinary incontinence; Z80.3 Family history of malignant neoplasm of breast; Z87.19 Personal history of other diseases of the digestive system
CPT/HCPCS: 36415; 80048; 80053; 80307; 81001; 83690; 83735; 84100; 85025; 87077; 87086; 87186; 93005; 96374; 99285; G0378; J1644; J2405; J3411; J3475; J3480; J7042; J2060; J7030

== ENCOUNTER 2019-09-12 12:15 | Emergency (ER) | payer MEDICARE, MEDICAID ==
[~2019-09-12] VITALS: Ht 152.4 cm; Wt 51.0 kg
[~2019-09-12 12:15] MED LIST changes: -ACET-1757 PO; +ACET-2065 PO; +CEFD300C37 PO; +CYMBALTA; +MIRT-34 PO; -MIRT15TA4 PO; -RANI-448 PO; +RANI-460 PO; +SULF-169 PO
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
--- NOTE | 2019-09-12 13:15 | NUR ---
requested records from [facility]
--- NOTE | 2019-09-12 14:39 | NUR ---
BREAK RN: PT TO CT
[2019-09-12 14:59] VITALS: BP 127/90
--- NOTE | 2019-09-12 15:00 | NUR ---
PT RETURNED FROM CT, UPRIGHT ON GURNEY AWAKE & ABLE TO REPOSITION SELF ON GURNEY FOR COMFORT, RESPONDS APPROP TO STAFF, NAD, NO NEEDS AT THIS TIME, CALL LIGHT WITHIN REACH.
--- NOTE | 2019-09-12 16:04 | NUR ---
PT REFUSED VS, SITTING ON EDGE OF GURNEY TEARFUL WITH MULTIPLE C/O (I.E. WASHCLOTH TOO HOT/NOT WARM ENOUGH, NEEDING HELP PUTTING PANTS ON BUT NOT WAITING FOR STAFF TO HELP, ASKING FOR ADULT BRIEF AFTER PANTS WERE UP, REFUSING TYPE OF BRIEF AVAILABLE; PT STATING "GET OUT! JUST LEAVE ME ALONE! YOU GUYS DONE WANT ME HERE ANYWAY!"), GALA DALTON AWARE THAT PT IS REFUSING STAFF HELP, ASSIST TO AMBULATE & LAST SET OF VS.
--- NOTE | 2019-09-12 16:31 | NUR ---
Patient given discharge instructions but refused it, they have confirmed that they understand the instructions. Patient ambulatory with [facility].
== END 2019-09-12 16:54 | disposition home or self-care (01) ==
LOC: ED 12:30
DX: S76.912A Strain of unspecified muscles, fascia and tendons at thigh level, left thigh, initial encounter (principal); M79.662 Pain in left lower leg; X58.XXXA Exposure to other specified factors, initial encounter; Y93.89 Activity, other specified; Y92.099 Unspecified place in other non-institutional residence as the place of occurrence of the external cause; Y99.8 Other external cause status
CPT/HCPCS: 99284

== ENCOUNTER 2020-08-23 11:43 | Inpatient (IN) | payer MEDICARE, MEDICAID ==
[~2020-08-23] VITALS: Ht 160 cm; Wt 59.9 kg
[~2020-08-23 11:43] MED LIST changes: -ALEN70TA6 PO; +ALEN70TA77 PO; -CALC-666 PO; +CALC500T14 PO; +HYDR-1067 PO; -HYDR-3240 PO; -OXYC5TAB3 PO; +OXYC5TAB98 PO
[2020-08-23] MEDS ORDERED: POLYETHYLENE GLYCOL 17 GM PACKET PO PRN (12:00)
[2020-08-23] MEDS ORDERED: BISACODYL 10 MG SUPP PR PRN (12:00)
[2020-08-23] MEDS ORDERED: DOCUSATE 100 MG CAPSULE PO PRN (12:00)
[2020-08-23] MEDS ORDERED: ONDANSETRON ODT 4 MG PO PRN (12:00)
[2020-08-23] MEDS ORDERED: SERT100T PO (13:39)
[2020-08-23] MEDS ORDERED: QUET100T4 PO (13:39)
[2020-08-23] MEDS ORDERED: HYDR-826 PO (13:39)
[2020-08-23] MEDS ORDERED: LORazepam 1MG TABLET ONE (14:40)
[2020-08-23 14:46] VITALS: BP 144/95
[2020-08-23] MEDS: LORazepam 1MG TABLET PO PRN ×2 (15:00→18:34)
[2020-08-23] MEDS ORDERED: FLU VACC QS2020-21(6MOS UP)/PF 60MCG/0.5 ML SYR IM-VACC ONE (16:00)
[2020-08-23 19:16] VITALS: BP 141/97
[2020-08-23] MEDS ORDERED: TRAZODONE 50MG TABLET PO SCH (21:00)
[2020-08-23 22:44] LABS: MICROSCOPIC AUTO
[2020-08-24] MEDS: LORazepam 1MG TABLET PO PRN ×2 (04:48→08:51)
[2020-08-24 07:16] LABS: CHOL/HDL RATIO 1.4; LDL/HDL RATIO 0.3 (0.5-3.0)
[2020-08-24 07:26] VITALS: BP 124/91
[2020-08-24] MEDS: FOLIC ACID 1 MG TABLET PO SCH (08:34)
[2020-08-24] MEDS: QUETIAPINE 100MG TABLET PO SCH (08:35)
[2020-08-24] MEDS: THIAMINE 100MG TABLET PO SCH (08:35)
[2020-08-24] MEDS: ACETAMINOPHEN 325 MG TABLET PO PRN (08:50)
[2020-08-24] MEDS ORDERED: SERTRALINE 100MG TABLET PO SCH (09:00)
[2020-08-24] MEDS ORDERED: LIDODERM 5% PATCH TD SCH (12:00)
[2020-08-24] MEDS ORDERED: LORazepam 0.5MG TABLET PO PRN (12:00)
[2020-08-24] MEDS ORDERED: LORazepam 0.5MG TABLET PO SCH (12:00)
[2020-08-24] MEDS: DULOXETINE 30 MG CAPSULE.DR PO SCH ×2 (12:57→20:21)
[2020-08-24] MEDS: LORazepam 0.5MG TABLET PO SCH ×2 (16:33→20:21)
[2020-08-24 19:20] VITALS: BP 112/81
[2020-08-24] MEDS: DOXEPIN 25 MG CAPSULE PO SCH (20:21)
[2020-08-25] MEDS ORDERED: LIDODERM REMOVE PATCH NOTE XX SCH
[2020-08-25] MEDS: LORazepam 1MG TABLET PO PRN ×2 (02:21→14:55)
[2020-08-25 07:41] VITALS: BP 137/92
[2020-08-25] MEDS: LORazepam 0.5MG TABLET PO SCH ×3 (08:04→20:39)
[2020-08-25] MEDS: DULOXETINE 30 MG CAPSULE.DR PO SCH ×2 (08:06→20:40)
[2020-08-25] MEDS: QUETIAPINE 100MG TABLET PO SCH (08:06)
[2020-08-25] MEDS: THIAMINE 100MG TABLET PO SCH (08:06)
[2020-08-25] MEDS: FOLIC ACID 1 MG TABLET PO SCH (08:06)
[2020-08-25] MEDS: LIDODERM 5% PATCH TD SCH (08:10)
[2020-08-25 12:53] VITALS: BP 111/74
[2020-08-25 19:52] VITALS: BP 141/98
[2020-08-25] MEDS: ACETAMINOPHEN 325 MG TABLET PO PRN (20:39)
[2020-08-25] MEDS: DOXEPIN 25 MG CAPSULE PO SCH (20:40)
[2020-08-25] MEDS: LIDODERM REMOVE PATCH NOTE XX SCH (20:43)
[2020-08-26 07:25] VITALS: BP 136/93
[2020-08-26] MEDS: LORazepam 0.5MG TABLET PO SCH ×3 (08:24→19:56)
[2020-08-26] MEDS: QUETIAPINE 100MG TABLET PO SCH (08:24)
[2020-08-26] MEDS: THIAMINE 100MG TABLET PO SCH (08:24)
[2020-08-26] MEDS: DULOXETINE 30 MG CAPSULE.DR PO SCH ×2 (08:25→19:56)
[2020-08-26] MEDS: FOLIC ACID 1 MG TABLET PO SCH (08:26)
[2020-08-26] MEDS: LIDODERM 5% PATCH TD SCH (08:27)
[2020-08-26] MEDS: ACETAMINOPHEN 325 MG TABLET PO PRN ×2 (13:34→19:56)
[2020-08-26] MEDS: LIDODERM REMOVE PATCH NOTE XX SCH (19:57)
[2020-08-26] MEDS: DOXEPIN 25 MG CAPSULE PO SCH (19:57)
[2020-08-26 20:46] VITALS: BP 130/91
[2020-08-27 07:25] VITALS: BP 136/95
[2020-08-27] MEDS: FOLIC ACID 1 MG TABLET PO SCH (08:20)
[2020-08-27] MEDS: THIAMINE 100MG TABLET PO SCH (08:20)
[2020-08-27] MEDS: DULOXETINE 30 MG CAPSULE.DR PO SCH ×2 (08:20→20:22)
[2020-08-27] MEDS: LORazepam 0.5MG TABLET PO SCH ×3 (08:20→20:22)
[2020-08-27] MEDS: QUETIAPINE 100MG TABLET PO SCH (08:21)
[2020-08-27] MEDS: LIDODERM 5% PATCH TD SCH (08:21)
[2020-08-27] MEDS: NYSTATIN TOPICAL POWDER 15GM TP SCH ×3 (11:27→20:25)
[2020-08-27 19:39] VITALS: BP 129/93
[2020-08-27] MEDS: DOXEPIN 25 MG CAPSULE PO SCH (20:22)
[2020-08-27] MEDS: LIDODERM REMOVE PATCH NOTE XX SCH (20:24)
[2020-08-28 07:20] VITALS: BP 115/82
[2020-08-28] MEDS: DULOXETINE 30 MG CAPSULE.DR PO SCH ×2 (08:10→20:42)
[2020-08-28] MEDS: LIDODERM 5% PATCH TD SCH (08:10)
[2020-08-28] MEDS: ACETAMINOPHEN 325 MG TABLET PO PRN (08:11)
[2020-08-28] MEDS: QUETIAPINE 100MG TABLET PO SCH (08:11)
[2020-08-28] MEDS: THIAMINE 100MG TABLET PO SCH (08:11)
[2020-08-28] MEDS: FOLIC ACID 1 MG TABLET PO SCH (08:11)
[2020-08-28] MEDS: LORazepam 0.5MG TABLET PO SCH (08:11)
[2020-08-28] MEDS: NYSTATIN TOPICAL POWDER 15GM TP SCH ×3 (09:00→21:00)
[2020-08-28] MEDS: IBUPROFEN 200 MG TABLET PO PRN (18:49)
[2020-08-28 19:53] VITALS: BP 110/78
[2020-08-28] MEDS: DOXEPIN 25 MG CAPSULE PO SCH (20:42)
[2020-08-28] MEDS: LIDODERM REMOVE PATCH NOTE XX SCH (21:21)
[2020-08-29 07:21] VITALS: BP 114/81
[2020-08-29] MEDS: FOLIC ACID 1 MG TABLET PO SCH (08:57)
[2020-08-29] MEDS: THIAMINE 100MG TABLET PO SCH (08:57)
[2020-08-29] MEDS: DULOXETINE 30 MG CAPSULE.DR PO SCH (08:57)
[2020-08-29] MEDS: QUETIAPINE 100MG TABLET PO SCH (08:57)
[2020-08-29] MEDS: NYSTATIN TOPICAL POWDER 15GM TP SCH (08:58)
[2020-08-29] MEDS: LIDODERM 5% PATCH TD SCH (08:58)
[2020-08-29] MEDS: IBUPROFEN 200 MG TABLET PO PRN (10:03)
[2020-08-29] MEDS ORDERED: DULO30CA2 PO (13:32)
[2020-08-29] MEDS ORDERED: DOXE25CA PO (13:32)
[2020-08-29] MEDS ORDERED: ACAM333T7 PO (13:35)
== END 2020-08-29 14:00 | disposition home or self-care (01) | DRG 885 ==
LOC: 3E 14:39
PROVIDERS: ADMIT Psychiatry & Neurology Psychosomatic Medicine; ATTEND Psychiatry & Neurology Psychosomatic Medicine
DX: F33.2 Major depressive disorder, recurrent severe without psychotic features (principal); F10.239 Alcohol dependence with withdrawal, unspecified; F41.9 Anxiety disorder, unspecified; G89.29 Other chronic pain; I10 Essential (primary) hypertension; K21.9 Gastro-esophageal reflux disease without esophagitis; M81.0 Age-related osteoporosis without current pathological fracture; R29.6 Repeated falls; G47.00 Insomnia, unspecified; Z96.642 Presence of left artificial hip joint; F10.229 Alcohol dependence with intoxication, unspecified; M54.9 Dorsalgia, unspecified; Z79.899 Other long term (current) drug therapy; Z91.012 Allergy to eggs; Z91.011 Allergy to milk products; Z80.3 Family history of malignant neoplasm of breast; Z80.1 Family history of malignant neoplasm of trachea, bronchus and lung; Z82.49 Family history of ischemic heart disease and other diseases of the circulatory system
CPT/HCPCS: 36415; 71045; 80061; 81001; 82607; 84443; 87086; 90686; 93005; Q0162; Q0177